=== PATIENT | male | born 1955 | race African-American/Black ===

== ENCOUNTER → 2017-10-14 | Outpatient (CLI) | payer MEDICARE, OTHER ==
[~2017-10-14] MED LIST: CLON0.2T PO; LISI1TAB11 PO
== END | disposition home or self-care (01) ==
LOC: RADPV 13:45
PROVIDERS: ATTEND Internal Medicine Nephrology
DX: N40.0 Benign prostatic hyperplasia without lower urinary tract symptoms (principal); N18.9 Chronic kidney disease, unspecified; N28.89 Other specified disorders of kidney and ureter
CPT/HCPCS: 76770

== ENCOUNTER 2025-04-28 15:30 | Emergency (ER) | payer MEDICARE, OTHER ==
[~2025-04-28] VITALS: Ht 177.8 cm; Wt 77.7 kg
[2025-04-28 15:40] VITALS: TEMP 99.1
[2025-04-28 15:59] LABS: COVID AG,FIA SOURCE NASAL SWAB
[2025-04-28 16:23] LABS: INFLUENZA TYPE A NEGATIVE FOR TYPE A (NEGATIVE); INFLUENZA TYPE B NEGATIVE FOR TYPE B (NEGATIVE); SARS-COV2 (COVID) ANTIGEN,FIA Negative (Negative)
[2025-04-28 17:12] VITALS: BP 138/72; PULSE 66; RESP 20; O2SAT 97
[2025-04-28] MEDS: BENZONATATE 100 MG CAPSULE PO ONE (17:29)
== END 2025-04-28 19:15 | disposition home or self-care (01) ==
LOC: EMS 15:30
DX: J20.8 Acute bronchitis due to other specified organisms (principal); B97.89 Other viral agents as the cause of diseases classified elsewhere; I10 Essential (primary) hypertension; Z79.899 Other long term (current) drug therapy; Z20.822 Contact with and (suspected) exposure to COVID-19
CPT/HCPCS: 71045; 87804; 99284

== ENCOUNTER 2025-06-21 10:53 | Emergency (ER) | payer MEDICARE, OTHER ==
[~2025-06-21] VITALS: Ht 177.8 cm; Wt 77.3 kg
[2025-06-21 11:26] VITALS: TEMP 98.4
[2025-06-21] MEDS ORDERED: AMLO2.5T96 PO (11:37)
[2025-06-21] MEDS ORDERED: METO25 PO (11:37)
[2025-06-21 12:32] LABS: APPEARANCE,URINE CLEAR (CLEAR); GLUCOSE, URINE (UA) NEGATIVE (NEGATIVE); LEUKOCYTE ESTERASE ,URINE NEGATIVE (NEGATIVE); NITRATE,URINE NEGATIVE (NEGATIVE); OCCULT BLOOD,URINE NEGATIVE (NEGATIVE); SPECIFIC GRAVITIY, URINE 1.015 (1.003-1.030)
[2025-06-21] MEDS: KETOROLAC TROMETHAMINE 30 MG/ML VIAL IM ONE (12:52)
[2025-06-21 14:15] VITALS: BP 136/65; PULSE 77; RESP 18; O2SAT 99
== END 2025-06-21 14:28 | disposition home or self-care (01) ==
LOC: EMS 10:53
DX: M54.50 Low back pain, unspecified (principal); R10.A1 Flank pain, right side; I10 Essential (primary) hypertension; Z79.899 Other long term (current) drug therapy
CPT/HCPCS: 99284; 71046; 81003; 96372; J1885

== ENCOUNTER 2025-06-29 11:25 | Emergency (ER) | payer MEDICARE, OTHER ==
[~2025-06-29] VITALS: Ht 177.8 cm; Wt 78.2 kg
[~2025-06-29 11:25] MED LIST changes: +AMLO2.5T96 PO; -CLON0.2T PO; +METO25 PO
[2025-06-29 11:50] VITALS: BP 147/62; PULSE 60; RESP 20; TEMP 97.9; O2SAT 96
== END 2025-06-29 13:28 | disposition left against medical advice (07) ==
LOC: EMS 11:27
DX: M54.50 Low back pain, unspecified (principal); Z53.21 Procedure and treatment not carried out due to patient leaving prior to being seen by health care provider
CPT/HCPCS: 99281; Z7502